=== PATIENT | female | born 1940 | race Native Hawaiian/Other Pacific Islander ===

== ENCOUNTER 2017-08-01 00:01 | Inpatient (IN) | payer OTHER ==
[2017-08-01 00:01] VITALS: BMI 31.4
--- NOTE | 2017-08-01 00:21 | C.PDOC ---
History Of Present Illness 76yo female, presents to the ED complaining of chest pain which began a little earlier when the patient was watching the TV. She reports the pain as pressure like and states it is non-radiating; pt additionally states the pain is 4/10. Of note, patient recently had a stress test done on 07/[address] López. Patient offers no additional medical complaints. Time Seen by Provider: 08/01/17 00:21 Chief Complaint (Nursing): Chest Pain History Per: Patient History/Exam Limitations: no limitations Onset/Duration Of Symptoms: Mins Current Symptoms Are (Timing): Still Present Pain Scale Rating Of: 4 Quality: Pressure Modifying Factors: None Exacerbating Factors: None Alleviating Factors: None Recent travel outside of the [place]: No Additional History Per: Patient Past Medical History Reviewed: Historical Data, Nursing Documentation, Vital Signs Vital Signs: Last Vital Signs Temp 97.9 F 08/01/17 00:12 Pulse 71 08/01/17 00:21 Resp 18 08/01/17 00:12 BP 139/84 08/01/17 00:21 Pulse Ox 96 08/01/17 01:39 - Medical History PMH: Anxiety, Asthma (Allergies), Depression, HTN, Peripheral Edema Denies: Chronic Kidney Disease Surgical History: No Surg Hx - [facility] Procedures DILATION OF 1 COR ART WITH INTRALUM DEV, PERC APPROACH (10/02/16) FLUOROSCOPY OF LEFT HEART USING LOW OSMOLAR CONTRAST (10/02/16) FLUOROSCOPY OF MULT COR ART USING L OSM CONTRAST (10/02/16) MEASURE OF CARDIAC SAMPL & PRESSURE, L HEART, PERC APPROACH (10/02/16) Family History: States: Unknown Family Hx - Social History Hx Alcohol Use: No Hx Substance Use: No Review Of Systems Constitutional: Negative for: Fever, Chills Cardiovascular: Positive for: Chest Pain Respiratory: Negative for: Shortness of Breath Gastrointestinal: Negative for: Abdominal Pain Genitourinary: Negative for: Hematuria Musculoskeletal: Negative for: Neck Pain Skin: Negative for: Rash Neurological: Negative for: Weakness Psych: Negative for: Anxiety Physical Exam - Physical Exam Appears: Non-toxic, No Acute Distress Skin: Warm, Dry Head: Normacephalic Eye(s): bilateral: Normal Inspection Oral Mucosa: Moist Neck: Supple Chest: Symmetrical Cardiovascular: Rhythm Regular Respiratory: No Rales, No Rhonchi, No Wheezing Gastrointestinal/Abdominal: Bowel Sounds, Soft, No Tenderness Back: No CVA Tenderness Extremity: No Deformity, No Swelling Extremity: Bilateral: Atraumatic Pulses: Left Dorsalis Pedis: Normal, Right Dorsalis Pedis: Normal Neurological/Psych: Oriented x3, Normal Speech (patient speaks in complete sentences), Normal Cognition Gait: Steady ED Course And Treatment - Laboratory Results Result Diagrams: 08/01/17 00:45 08/01/17 00:45 ECG: Interpreted By Me, Viewed By Me ECG Rhythm: Sinus Rhythm (67), Nonspecific Changes O2 Sat by Pulse Oximetry: 96 (RA) Pulse Ox Interpretation: Normal - Radiology CXR: Interpreted by Me, Viewed By Me Progress Note: Aspirin, labs and chest x-ray ordered Disposition Discussed With Dr.: James Olivier Comment: accepted the pt on his service and took over the care at 2AM Doctor Will See Patient In The: ED Counseled Patient/Family Regarding: Studies Performed, Diagnosis - Disposition Disposition: HOSPITALIZED Disposition Time: 00:21 Condition: FAIR Forms: [facility] (Macedonian) - Clinical Impression Clinical Impression: Chest pain - Scribe Statement The provider has reviewed the documentation as recorded by the Tang Duenas Provider Attestation: All medical record entries made by the Tang were at my direction and personally dictated by me. I have reviewed the chart and agree that the record accurately reflects my personal performance of the history, physical exam, medical decision making, and the department course for this patient. I have also personally directed, reviewed, and agree with the discharge instructions and disposition. Decision To Admit - Pt Status Changed To: Hospital Disposition Of: Observation - . Bed Request Type: Telemetry Admitting Physician: James Olivier Patient Diagnosis: Chest pain
[2017-08-01] MEDS ORDERED: Aspirin 325 mg EC Tablets PO STA (00:22)
[2017-08-01 00:49] LABS: BASO # 0.1 K/uL (0.0-0.2); BASO % 1.3 % (0.0-2.0); EOS # 0.2 K/uL (0.0-0.7); EOS % 3.1 % (0.0-4.0); HEMATOCRIT 39.8 % (34.0-47.0); LYMPH # 3.1 K/uL (1.0-4.3); LYMPH % 40.6 % (20.0-40.0); MEAN CELL VOLUME 91.6 fL (81.0-99.0); MEAN CORPUSCULAR HEMOGLOBIN 31.2 pg (27.0-31.0); MEAN CORPUSCULAR HGB CONC 34.1 g/dL (33.0-37.0); MEAN PLATELET VOLUME 9.3 fL (7.2-11.7); MONO # 0.5 K/uL (0.0-0.8); MONO % 6.6 % (0.0-10.0); NRBC % 0.1 % (0.0-2.0); RED CELL DISTRIBUTION WIDTH 13.2 % (11.5-14.5); WHITE BLOOD COUNT 7.7 K/uL (4.8-10.8)
[2017-08-01 00:57] LABS: INR 0.9
[2017-08-01] MEDS ORDERED: Aspirin 325 mg EC Tablets PO ONE (00:57)
[2017-08-01 01:01] LABS: CHLORIDE 103 mmol/L (98-107); SODIUM 140 mmol/L (132-148)
[2017-08-01 01:03] LABS: BILIRUBIN,TOTAL 0.5 mg/dL (0.2-1.3); GFR AFRICAN-AMERICAN > 60
[2017-08-01 01:04] LABS: ALB/GLOB RATIO 1.4 (1.0-2.1); ALKALINE PHOSPHATASE 86 U/L (38-126); ALT/SGPT 36 U/L (9-52); AST/SGOT 36 U/L (14-36); BLOOD UREA NITROGEN 22 mg/dL (7-17); CARBON DIOXIDE 26 mmol/L (22-30); GLUCOSE,RANDOM 205 mg/dL (65-105); TOTAL PROTEIN 7.1 g/dL (6.3-8.3)
[2017-08-01 01:05] LABS: CALCIUM 8.9 mg/dl (8.6-10.4)
--- NOTE | 2017-08-01 02:50 | CP.PCM.HP ---
<AndrewGrisel ModiJulio Cesar - Last Filed: 08/01/17 04:53> History of Present Illness - History of Present Illness History of Present Illness: CC: Chest Pain HPI: 75yo F with past medical history including Anxiety/Depression and borderline diabetes who comes to the emergency room with chest pain for the past day. Patient states the chest pain began earlier today after dinner around 5pm and she thought it was from her dinner however later on in the evening the pain persisted. Patient states the pain feels like a pressure and it is located in the middle of the chest. Patient also states the pain radiates the back. She states she has had 2 cath procedures and a recent stress test with Dr. López but she has not received the results. Patient denies fever, shortness of breath, palpitations, chills, diarrhea, constipations, nausea or vomiting. PMD: Dr. Whyte Classification Counselor: Dr. López Past Medical History: Anxiety/Depression. Diet controlled "borderline" DM Past Surgical History: Cath procedure on 2015 (stent placed in left circumflex) and another in 2017 Social History: Lives at home with daughter, No smoking, no alcohol or illicit drug use Medications: patient states she will bring in home medications tomorrow Allergies: NKDA Present on Admission - Present on Admission Any Indicators Present on Admission: No Review of Systems - Review of Systems Systems not reviewed;Unavailable: Language Barrier - Constitutional Constitutional: absent: Chills, Headache - EENT Eyes: absent: Blurred Vision Nose/Mouth/Throat: absent: Nasal Congestion, Nasal Discharge, Hoarsness, Sore Throat - Cardiovascular Cardiovascular: Chest Pain, Chest Pain at Rest, Dyspnea. absent: Palpitations, Pedal Edema - Respiratory Respiratory: Dyspnea on Exertion. absent: Cough, Dyspnea - Gastrointestinal Gastrointestinal: absent: Constipation, Diarrhea, Nausea, Vomiting - Genitourinary Genitourinary: absent: Dysuria - Musculoskeletal Musculoskeletal: absent: Numbness, Tingling - Neurological Neurological: absent: Dizziness, Numbness, Tingling, Weakness - Endocrine Endocrine: absent: Fatigue, Palpitations Past Patient History - Infectious Disease Hx of Infectious Diseases: None - Past Medical History & Family History Past Medical History?: Yes - Past Social History Smoking Status: Never Smoked - CARDIAC Hx Hypertension: Yes Hx Peripheral Edema: Yes - PULMONARY Hx Asthma: Yes (Allergies) - NEUROLOGICAL Hx Neurological Disorder: No - HEENT Hx Epistaxis: Yes - RENAL Hx Chronic Kidney Disease: No - ENDOCRINE/METABOLIC Hx Endocrine Disorders: Yes Hx Diabetes Mellitus Type 2: Yes (borderline, denies medications) - HEMATOLOGICAL/ONCOLOGICAL Hx Blood Disorders: No - INTEGUMENTARY Hx Dermatological Problems: No - MUSCULOSKELETAL/RHEUMATOLOGICAL Hx Musculoskeletal Disorders: Yes Hx Unsteady Gait: Yes - GASTROINTESTINAL Hx Gastrointestinal Disorders: No - GENITOURINARY/GYNECOLOGICAL Hx Genitourinary Disorders: No - PSYCHIATRIC Hx Anxiety: Yes Hx Depression: Yes Hx Substance Use: No - SURGICAL HISTORY Hx Angioplasty: Yes Hx Cardiac Catheterization: Yes - ANESTHESIA Hx Anesthesia: Yes Hx Malignant Hyperthermia: No Meds Allergies/Adverse Reactions: Allergies Allergy/AdvReac Type Severity Reaction Status Date / Time No Known Allergies Allergy Verified 10/01/16 19:33 Physical Exam - Constitutional Appears: No Acute Distress - Head Exam Head Exam: ATRAUMATIC, NORMAL INSPECTION, NORMOCEPHALIC - Eye Exam Eye Exam: EOMI, Normal appearance, PERRL Pupil Exam: NORMAL ACCOMODATION - ENT Exam ENT Exam: Mucous Membranes Moist - Neck Exam Neck exam: Positive for: Normal Inspection - Respiratory Exam Respiratory Exam: Clear to Auscultation Bilateral, NORMAL BREATHING PATTERN - Cardiovascular Exam Cardiovascular Exam: REGULAR RHYTHM, RRR, +S1, +S2 - GI/Abdominal Exam GI & Abdominal Exam: Normal Bowel Sounds, Soft. absent: Tenderness - Extremities Exam Extremities exam: Positive for: normal inspection. Negative for: calf tenderness, pedal edema, tenderness - Back Exam Back exam: NORMAL INSPECTION - Neurological Exam Neurological exam: Alert, CN II-XII Intact, Oriented x3 - Psychiatric Exam Psychiatric exam: Normal Affect, Normal Mood - Skin Skin Exam: Normal Color, Warm Results - Vital Signs Recent Vital Signs: Last Vital Signs Temp 97.9 F 08/01/17 00:12 Pulse 71 08/01/17 00:21 Resp 18 08/01/17 00:12 BP 139/84 08/01/17 00:21 Pulse Ox 96 08/01/17 02:22 - Labs Result Diagrams: 08/01/17 00:45 08/01/17 00:45 Labs: Laboratory Results - last 24 hr 08/01/17 08/01/17 08/01/17 00:45 00:45 00:45 WBC 7.7 RBC 4.35 Hgb 13.6 Hct 39.8 MCV 91.6 MCH 31.2 H MCHC 34.1 RDW 13.2 Plt Count 258 MPV 9.3 Neut % (Auto) 48.4 L Lymph % (Auto) 40.6 H [place] % (Auto) 6.6 Eos % (Auto) 3.1 Baso % (Auto) 1.3 Neut # 3.7 Lymph # 3.1 [place] # 0.5 Eos # 0.2 Baso # 0.1 PT 10.0 INR 0.9 APTT 30 Sodium 140 Potassium 4.0 Chloride 103 Carbon Dioxide 26 Anion Gap 16 BUN 22 H Creatinine 0.9 Est GFR ( Amer) > 60 Est GFR (Non-Af Amer) > 60 Random Glucose 205 H Calcium 8.9 Total Bilirubin 0.5 AST 36 ALT 36 Alkaline Phosphatase 86 Troponin I < 0.0120 NT-Pro-B Natriuret Pep 323 Total Protein 7.1 Albumin 4.1 Globulin 3.0 Albumin/Globulin Ratio 1.4 Assessment & Plan - Assessment and Plan (Free Text) Assessment: 1.) Chest Pain - Troponin <0.0120 - f/u Troponin x2 - EKG: sinus rhythm - 325mg Aspirin given in the ED - restart home medications after confirmation - f/u Nuclear Stress Test (07/23/17) - ECHO (10/02/16): EF 50% - f/u chest xray 2.) History of Depression/Anxiety Restart home medications after patient brings them in to confirm 3. PPx Pepcid Heparin SC Case Discussed with Dr. 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 Nuclear stress test on 07/20/2017 report not available at time of evaluation. Patient denies exertioanl symptoms. Last night cp as pressure on left side for few min at 5pm post supper and at night 11 with spontaneous improvement, w/u including ekg, troponin negative. Plan Repeat cardiac enzymes f/u stress report with Dr. López See orders for detail.
--- NOTE | 2017-08-01 08:46 | RAD ---
PROCEDURE: CHEST RADIOGRAPH, 1 VIEW HISTORY: chest pain COMPARISON: None available. FINDINGS: LUNGS: The left retrocardiac portion of the lower lobe is not clearly seen. Otherwise no evidence of focal infiltrate or consolidation P PLEURA: No pneumothorax or pleural fluid seen. CARDIOVASCULAR: Normal. OSSEOUS STRUCTURES: No significant abnormalities. VISUALIZED UPPER ABDOMEN: Normal. OTHER FINDINGS: None. IMPRESSION: Suboptimal study due portable technique and patient's body habitus. The retrocardiac portion of the left lower lobe is not clearly seen. Otherwise no evidence of acute pulmonary disease.
[2017-08-01] MEDS: Multiple Vitamins Tab PO SCH (14:17)
[2017-08-01 16:34] LABS: RBC URINE 3 /hpf (0-3); URINE BACTERIA RARE (<OCC); URINE BILIRUBIN NEGATIVE (NEGATIVE); URINE BLOOD NEGATIVE (NEGATIVE); URINE COLOR Yellow (YELLOW); URINE GLUCOSE (UA) 3+ mg/dL (Normal); URINE KETONE NEGATIVE (NEGATIVE); URINE LEUKOCYTE ESTERASE 1+ Leu/uL (Negative); URINE PROTEIN NEGATIVE (NEGATIVE); URINE UROBILINOGEN NORMAL mg/dL (0.2-1.0); WBC URINE 36 /hpf (0-5)
--- NOTE | 2017-08-01 18:16 | CP.PCM.PN ---
<NicolaJeni L. - Last Filed: 08/01/17 17:54> Subjective - Date & Time of Evaluation Date of Evaluation: 08/01/17 Time of Evaluation: 07:00 - Subjective Subjective: PGY1- Medicine Note- Dr. Lopez's Service Patient seen and examined at bedside and says she is feeling much better. Patient no longer has any chest pain. Patient denies shortness of breath, palpitations, abdominal pain, nausea, vomiting, constipation, diarrhea. Objective - Vital Signs/Intake and Output Vital Signs (last 24 hours): Temp Pulse Resp BP Pulse Ox 98.2 F 64 16 128/50 L 99 08/01/17 16:05 08/01/17 16:05 08/01/17 16:05 08/01/17 16:05 08/01/17 16:05 - Medications Medications: Current Medications Aspirin (Aspirin Chewable) 81 mg PO DAILY [facility] Last Admin: 08/01/17 14:16 Dose: 81 mg Clonazepam (Klonopin) 0.5 mg PO TID [facility] Last Admin: 08/01/17 14:17 Dose: 0.5 mg Clopidogrel Bisulfate (Plavix) 75 mg PO DAILY [facility] Last Admin: 08/01/17 14:17 Dose: 75 mg Famotidine (Pepcid) 20 mg PO DAILY [facility] Last Admin: 08/01/17 09:12 Dose: 20 mg Fluoxetine HCl (Prozac) 40 mg PO DAILY [facility] Last Admin: 08/01/17 14:17 Dose: 40 mg Heparin Sodium (Porcine) (Heparin) 5,000 units SC Q8 [facility] Last Admin: 08/01/17 14:16 Dose: 5,000 units Metoprolol Tartrate (Lopressor) 25 mg PO DAILY [facility] Last Admin: 08/01/17 14:16 Dose: 25 mg Multivitamins (Hexavitamin) 1 tab PO DAILY [facility] Last Admin: 08/01/17 14:17 Dose: 1 tab Rosuvastatin Calcium (Crestor) 10 mg PO HS [facility] - Labs Labs: PT 10.0 SECONDS (9.7-12.2) 08/01/17 00:45 INR 0.9 08/01/17 00:45 APTT 30 SECONDS (21-34) 08/01/17 00:45 - Constitutional Appears: Non-toxic, No Acute Distress - Head Exam Head Exam: ATRAUMATIC, NORMAL INSPECTION, NORMOCEPHALIC - Eye Exam Eye Exam: EOMI, Normal appearance - ENT Exam ENT Exam: Mucous Membranes Moist - Neck Exam Neck Exam: Full ROM. absent: Tenderness - Respiratory Exam Respiratory Exam: Clear to Ausculation Bilateral, NORMAL BREATHING PATTERN. absent: Rales, Rhonchi, Wheezes, Respiratory Distress, Stridor - Cardiovascular Exam Cardiovascular Exam: REGULAR RHYTHM, RRR. absent: Gallop, Rubs - GI/Abdominal Exam GI & Abdominal Exam: Soft, Normal Bowel Sounds - Extremities Exam Extremities Exam: Full ROM, Normal Inspection. absent: Pedal Edema - Neurological Exam Neurological Exam: Alert, Awake, Oriented x3 - Psychiatric Exam Psychiatric exam: Normal Affect, Normal Mood - Skin Skin Exam: Intact, Normal Color, Warm Assessment and Plan - Assessment and Plan (Free Text) Assessment: 1.) Chest Pain - troponins x3 (-) - EKG: sinus rhythm - 325mg Aspirin given in the ED - restart home medications after confirmation - f/u Nuclear Stress Test (07/23/17) - ECHO (10/02/16): EF 50% - chest xray: suboptimal study due to portable technique and patient's body habitus. retrocardiac portion of left lower lobe is not clearly seen. otherwise no evidence of acute pulmonary disease consult cardiology, Dr. López, help appreciated 2.) History of Depression/Anxiety continue home medications: Klonopin .5 mg po tid Prozac 40 mg po daily 3.) HTN continue home medication: Metoprolol Tartrate 25 mg po daily 4.) hx cardiac stent continue home medications: Aspirin 81 mg po daily Plavix 75mg PO daily 3. PPx Pepcid Heparin SC <Tony Lopez H - Last Filed: 08/01/17 18:47> Objective - Vital Signs/Intake and Output Vital Signs (last 24 hours): Temp Pulse Resp BP Pulse Ox 98.2 F 64 16 128/50 L 99 08/01/17 16:05 08/01/17 16:05 08/01/17 16:05 08/01/17 16:05 08/01/17 16:05 - Medications Medications: Current Medications Aspirin (Aspirin Chewable) 81 mg PO DAILY [facility] Last Admin: 08/01/17 14:16 Dose: 81 mg Clonazepam (Klonopin) 0.5 mg PO TID [facility] Last Admin: 08/01/17 14:17 Dose: 0.5 mg Clopidogrel Bisulfate (Plavix) 75 mg PO DAILY [facility] Last Admin: 08/01/17 14:17 Dose: 75 mg Famotidine (Pepcid) 20 mg PO DAILY [facility] Last Admin: 08/01/17 09:12 Dose: 20 mg Fluoxetine HCl (Prozac) 40 mg PO DAILY [facility] Last Admin: 08/01/17 14:17 Dose: 40 mg Heparin Sodium (Porcine) (Heparin) 5,000 units SC Q8 [facility] Last Admin: 08/01/17 14:16 Dose: 5,000 units Metoprolol Tartrate (Lopressor) 25 mg PO DAILY [facility] Last Admin: 08/01/17 14:16 Dose: 25 mg Multivitamins (Hexavitamin) 1 tab PO DAILY [facility] Last Admin: 08/01/17 14:17 Dose: 1 tab Rosuvastatin Calcium (Crestor) 10 mg PO HS [facility] - Labs Labs: PT 10.0 SECONDS (9.7-12.2) 08/01/17 00:45 INR 0.9 08/01/17 00:45 APTT 30 SECONDS (21-34) 08/01/17 00:45 Attending/Attestation - Attestation I have personally seen and examined this patient.: Yes I have fully participated in the care of the patient.: Yes I have reviewed all pertinent clinical information, including history, physical exam and plan: Yes Notes (Text): 08/01/17 18:45 Medical Attending: Patient was seen and examined by me. Agree with the above note by the resident When we saw the patient she was still in the ER. Two of her cardiac enzymes were negative at that time. When we saw her she did not report chest pain From what I understand she has had a recent cardiac cath as well as stress test with her underwear cutter and is on Plavix and ASA thank you Tony Lopez 08/01/17 18:47
[2017-08-02 02:48] VITALS: RESP 20
[2017-08-02 08:01] LABS: BASO # 0.1 K/uL (0.0-0.2); BASO % 0.9 % (0.0-2.0); EOS # 0.3 K/uL (0.0-0.7); EOS % 3.2 % (0.0-4.0); HEMATOCRIT 43.7 % (34.0-47.0); LYMPH % 42.8 % (20.0-40.0); MEAN CELL VOLUME 93.4 fL (81.0-99.0); MEAN CORPUSCULAR HEMOGLOBIN 30.9 pg (27.0-31.0); MEAN CORPUSCULAR HGB CONC 33.1 g/dL (33.0-37.0); MEAN PLATELET VOLUME 9.2 fL (7.2-11.7); MONO # 0.7 K/uL (0.0-0.8); MONO % 7.7 % (0.0-10.0); NRBC % 0.1 % (0.0-2.0); RED CELL DISTRIBUTION WIDTH 13.1 % (11.5-14.5); WHITE BLOOD COUNT 9.3 K/uL (4.8-10.8)
[2017-08-02 08:21] LABS: CHLORIDE 102 mmol/L (98-107)
[2017-08-02 08:22] LABS: POTASSIUM 4.3 mmol/L (3.6-5.2); SODIUM 140 mmol/L (132-148)
[2017-08-02 08:24] LABS: CARBON DIOXIDE 26 mmol/L (22-30); GFR AFRICAN-AMERICAN > 60
[2017-08-02 08:25] LABS: ALB/GLOB RATIO 1.3 (1.0-2.1); ALKALINE PHOSPHATASE 86 U/L (38-126); ALT/SGPT 35 U/L (9-52); AST/SGOT 35 U/L (14-36); BILIRUBIN,TOTAL 0.8 mg/dL (0.2-1.3); BLOOD UREA NITROGEN 22 mg/dL (7-17); CALCIUM 8.8 mg/dl (8.6-10.4); GLUCOSE,RANDOM 147 mg/dL (65-105); PHOSPHOROUS 3.5 mg/dL (2.5-4.5); TOTAL PROTEIN 7.4 g/dL (6.3-8.3)
[2017-08-02 08:26] LABS: MAGNESIUM 1.8 mg/dL (1.6-2.3)
[2017-08-02 09:45] VITALS: PULSE 61
[2017-08-02] MEDS: Multiple Vitamins Tab PO SCH (10:02)
--- NOTE | 2017-08-02 13:41 | CP.PCM.CON ---
History of Present Illness - History of Present Illness History of Present Illness: patient seen/examined. mild apical perfusion abnormality on stress test. no evidence of myocardial infarction by cardiac enzymes. Recommend nitrates and addition of Ranexa for symptom control. Past Patient History - Infectious Disease Hx of Infectious Diseases: None - Past Medical History & Family History Past Medical History?: Yes - Past Social History Smoking Status: Never Smoked - CARDIAC Hx Cardiac Disorders: Yes Hx Hypertension: Yes Hx Peripheral Edema: Yes - PULMONARY Hx Respiratory Disorders: Yes Hx Asthma: Yes (Allergies) - NEUROLOGICAL Hx Neurological Disorder: No - HEENT Hx HEENT Problems: Yes Hx Epistaxis: Yes - RENAL Hx Chronic Kidney Disease: No - ENDOCRINE/METABOLIC Hx Endocrine Disorders: Yes Hx Diabetes Mellitus Type 2: Yes (borderline, denies medications) - HEMATOLOGICAL/ONCOLOGICAL Hx Blood Disorders: No - INTEGUMENTARY Hx Dermatological Problems: No - MUSCULOSKELETAL/RHEUMATOLOGICAL Hx Musculoskeletal Disorders: Yes Hx Falls: No Hx Unsteady Gait: Yes - GASTROINTESTINAL Hx Gastrointestinal Disorders: No - GENITOURINARY/GYNECOLOGICAL Hx Genitourinary Disorders: No - PSYCHIATRIC Hx Psychophysiologic Disorder: Yes Hx Anxiety: Yes Hx Depression: Yes Hx Substance Use: No - SURGICAL HISTORY Hx Surgeries: Yes Hx Angioplasty: Yes Hx Cardiac Catheterization: Yes Hx Hysterectomy: Yes - ANESTHESIA Hx Anesthesia: Yes Hx Malignant Hyperthermia: No Meds Allergies/Adverse Reactions: Allergies Allergy/AdvReac Type Severity Reaction Status Date / Time No Known Allergies Allergy Verified 10/01/16 19:33 - Medications Medications: Current Medications Aspirin (Aspirin Chewable) 81 mg PO DAILY [facility] Last Admin: 08/02/17 10:02 Dose: 81 mg Clonazepam (Klonopin) 0.5 mg PO TID [facility] Last Admin: 08/02/17 10:02 Dose: 0.5 mg Clopidogrel Bisulfate (Plavix) 75 mg PO DAILY [facility] Last Admin: 08/02/17 10:02 Dose: 75 mg Famotidine (Pepcid) 20 mg PO DAILY [facility] Last Admin: 08/02/17 10:02 Dose: 20 mg Fluoxetine HCl (Prozac) 40 mg PO DAILY [facility] Last Admin: 08/02/17 10:02 Dose: 40 mg Heparin Sodium (Porcine) (Heparin) 5,000 units SC Q8 [facility] Last Admin: 08/02/17 05:17 Dose: 5,000 units Lisinopril (Zestril) 10 mg PO DAILY [facility] Metoprolol Tartrate (Lopressor) 25 mg PO DAILY [facility] Last Admin: 08/02/17 10:02 Dose: 25 mg Multivitamins (Hexavitamin) 1 tab PO DAILY [facility] Last Admin: 08/02/17 10:02 Dose: 1 tab Nitrofurantoin Macrocrystals (Macrobid) 100 mg PO Q12H [facility] Rosuvastatin Calcium (Crestor) 10 mg PO HS [facility] Last Admin: 08/01/17 22:02 Dose: 10 mg Results - Vital Signs Recent Vital Signs: Last Vital Signs Temp 97.5 F L 08/02/17 07:00 Pulse 61 08/02/17 07:55 Resp 20 08/02/17 07:00 BP 150/80 08/02/17 10:02 Pulse Ox 98 08/02/17 07:00 - Labs Result Diagrams: 08/02/17 07:45 08/02/17 07:45 Labs: Laboratory Results - last 24 hr 08/01/17 08/01/17 08/02/17 15:55 16:04 06:24 WBC RBC Hgb Hct MCV MCH MCHC RDW Plt Count MPV Neut % (Auto) Lymph % (Auto) [place] % (Auto) Eos % (Auto) Baso % (Auto) Neut # Lymph # [place] # Eos # Baso # Sodium Potassium Chloride Carbon Dioxide Anion Gap BUN Creatinine Est GFR ( Amer) Est GFR (Non-Af Amer) POC Glucose (mg/dL) 135 H Random Glucose Calcium Phosphorus Magnesium Total Bilirubin AST ALT Alkaline Phosphatase Total Creatine Kinase 129 CK-MB (Mass) 1.81 Troponin I, Quant < 0.0120 Total Protein Albumin Globulin Albumin/Globulin Ratio Urine Color Yellow Urine Clarity Hazy Urine pH 5.0 Ur Specific [place] 1.026 Urine Protein Negative Urine Glucose (UA) 3+ H Urine Ketones Negative Urine Blood Negative Urine Nitrate Negative Urine Bilirubin Negative Urine Urobilinogen Normal Ur Leukocyte Esterase 1+ H Urine WBC (Auto) 36 H Urine RBC (Auto) 3 Ur Squamous Epith Cells 18 H Urine Bacteria Rare 08/02/17 08/02/17 08/02/17 07:45 07:45 11:51 WBC 9.3 RBC 4.68 Hgb 14.4 Hct 43.7 MCV 93.4 MCH 30.9 MCHC 33.1 RDW 13.1 Plt Count 290 MPV 9.2 Neut % (Auto) 45.4 L Lymph % (Auto) 42.8 H [place] % (Auto) 7.7 Eos % (Auto) 3.2 Baso % (Auto) 0.9 Neut # 4.2 Lymph # 4.0 [place] # 0.7 Eos # 0.3 Baso # 0.1 Sodium 140 Potassium 4.3 Chloride 102 Carbon Dioxide 26 Anion Gap 16 BUN 22 H Creatinine 0.8 Est GFR ( Amer) > 60 Est GFR (Non-Af Amer) > 60 POC Glucose (mg/dL) 205 H Random Glucose 147 H Calcium 8.8 Phosphorus 3.5 Magnesium 1.8 Total Bilirubin 0.8 AST 35 ALT 35 Alkaline Phosphatase 86 Total Creatine Kinase CK-MB (Mass) Troponin I, Quant Total Protein 7.4 Albumin 4.2 Globulin 3.2 Albumin/Globulin Ratio 1.3 Urine Color Urine Clarity Urine pH Ur Specific [place] Urine Protein Urine Glucose (UA) Urine Ketones Urine Blood Urine Nitrate Urine Bilirubin Urine Urobilinogen Ur Leukocyte Esterase Urine WBC (Auto) Urine RBC (Auto) Ur Squamous Epith Cells Urine Bacteria
[2017-08-02 16:38] VITALS: BP 101/56; TEMP 97.7; O2SAT 95
[2017-08-02] MEDS ORDERED: Ranolazine 500 mg Extended Release Tablets PO SCH (18:00)
--- NOTE | 2017-08-02 20:25 | CP.PCM.DIS ---
Provider - Provider Date of Admission: 08/01/17 01:48 Attending physician: James Olivier MD Primary care physician: Dr. Whyte Consults: Dr. López Time Spent in preparation of Discharge (in minutes): 45 Diagnosis - Discharge Diagnosis (1) Anxiety disorder Status: Chronic (2) Chest pain Status: Resolved Hospital Course - Lab Results Lab Results: Most Recent Lab Values WBC 9.3 K/uL (4.8-10.8) 08/02/17 07:45 RBC 4.68 Mil/uL (3.80-5.20) 08/02/17 07:45 Hgb 14.4 g/dL (11.0-16.0) 08/02/17 07:45 Hct 43.7 % (34.0-47.0) 08/02/17 07:45 MCV 93.4 fL (81.0-99.0) 08/02/17 07:45 MCH 30.9 pg (27.0-31.0) 08/02/17 07:45 MCHC 33.1 g/dL (33.0-37.0) 08/02/17 07:45 RDW 13.1 % (11.5-14.5) 08/02/17 07:45 Plt Count 290 K/uL (130-400) 08/02/17 07:45 MPV 9.2 fL (7.2-11.7) 08/02/17 07:45 Neut % (Auto) 45.4 % (50.0-75.0) L 08/02/17 07:45 Lymph % (Auto) 42.8 % (20.0-40.0) H 08/02/17 07:45 [place] % (Auto) 7.7 % (0.0-10.0) 08/02/17 07:45 Eos % (Auto) 3.2 % (0.0-4.0) 08/02/17 07:45 Baso % (Auto) 0.9 % (0.0-2.0) 08/02/17 07:45 Neut # 4.2 K/uL (1.8-7.0) 08/02/17 07:45 Lymph # 4.0 K/uL (1.0-4.3) 08/02/17 07:45 [place] # 0.7 K/uL (0.0-0.8) 08/02/17 07:45 Eos # 0.3 K/uL (0.0-0.7) 08/02/17 07:45 Baso # 0.1 K/uL (0.0-0.2) 08/02/17 07:45 PT 10.0 SECONDS (9.7-12.2) 08/01/17 00:45 INR 0.9 08/01/17 00:45 APTT 30 SECONDS (21-34) 08/01/17 00:45 Sodium 140 mmol/L (132-148) 08/02/17 07:45 Potassium 4.3 mmol/L (3.6-5.2) 08/02/17 07:45 Chloride 102 mmol/L (98-107) 08/02/17 07:45 Carbon Dioxide 26 mmol/L (22-30) 08/02/17 07:45 Anion Gap 16 (10-20) 08/02/17 07:45 BUN 22 mg/dL (7-17) H 08/02/17 07:45 Creatinine 0.8 MG/DL (0.7-1.2) 08/02/17 07:45 Est GFR ( Amer) > 60 08/02/17 07:45 Est GFR (Non-Af Amer) > 60 08/02/17 07:45 POC Glucose (mg/dL) 205 mg/dL (65-110) H 08/02/17 11:51 Random Glucose 147 mg/dL (65-105) H 08/02/17 07:45 Calcium 8.8 mg/dl (8.6-10.4) 08/02/17 07:45 Phosphorus 3.5 mg/dL (2.5-4.5) 08/02/17 07:45 Magnesium 1.8 mg/dL (1.6-2.3) 08/02/17 07:45 Total Bilirubin 0.8 mg/dL (0.2-1.3) 08/02/17 07:45 AST 35 U/L (14-36) 08/02/17 07:45 ALT 35 U/L (9-52) 08/02/17 07:45 Alkaline Phosphatase 86 U/L (38-126) 08/02/17 07:45 Total Creatine Kinase 129 U/L (30-135) 08/01/17 16:04 CK-MB (Mass) 1.81 ng/mL (0.0-3.38) 08/01/17 16:04 Troponin I < 0.0120 ng/mL (0.00-0.120) 08/01/17 00:45 Troponin I, Quant < 0.0120 ng/mL (0.00-0.120) 08/01/17 16:04 NT-Pro-B Natriuret Pep 323 pg/mL (0-900) 08/01/17 00:45 Total Protein 7.4 g/dL (6.3-8.3) 08/02/17 07:45 Albumin 4.2 g/dL (3.5-5.0) 08/02/17 07:45 Globulin 3.2 gm/dL (2.2-3.9) 08/02/17 07:45 Albumin/Globulin Ratio 1.3 (1.0-2.1) 08/02/17 07:45 Urine Color Yellow (YELLOW) 08/01/17 15:55 Urine Clarity Hazy (Clear) 08/01/17 15:55 Urine pH 5.0 (5.0-8.0) 08/01/17 15:55 Ur Specific [place] 1.026 (1.003-1.030) 08/01/17 15:55 Urine Protein Negative mg/dL (NEGATIVE) 08/01/17 15:55 Urine Glucose (UA) 3+ mg/dL (Normal) H 08/01/17 15:55 Urine Ketones Negative mg/dL (NEGATIVE) 08/01/17 15:55 Urine Blood Negative (NEGATIVE) 08/01/17 15:55 Urine Nitrate Negative (NEGATIVE) 08/01/17 15:55 Urine Bilirubin Negative (NEGATIVE) 08/01/17 15:55 Urine Urobilinogen Normal mg/dL (0.2-1.0) 08/01/17 15:55 Ur Leukocyte Esterase 1+ Karen/uL (Negative) H 08/01/17 15:55 Urine WBC (Auto) 36 /hpf (0-5) H 08/01/17 15:55 Urine RBC (Auto) 3 /hpf (0-3) 08/01/17 15:55 Ur Squamous Epith Cells 18 /hpf (0-5) H 08/01/17 15:55 Urine Bacteria Rare (<OCC) 08/01/17 15:55 - Hospital Course Hospital Course: "CC: Chest Pain HPI: 75yo F with past medical history including Anxiety/Depression and borderline diabetes who comes to the emergency room with chest pain for the past day. Patient states the chest pain began earlier today after dinner around 5pm and she thought it was from her dinner however later on in the evening the pain persisted. Patient states the pain feels like a pressure and it is located in the middle of the chest. Patient also states the pain radiates the back. She states she has had 2 cath procedures and a recent stress test with Dr. López but she has not received the results. Patient denies fever, shortness of breath, palpitations, chills, diarrhea, constipations, nausea or vomiting. " Hospital Course: Chest Pain: troponins x3 were negative and EKG showed sinus rhythm. 325mg Aspirin given in the ED. ECHO (10/02/16): EF 50%. Chest xray showed suboptimal study due to portable technique and patient's body habitus. retrocardiac portion of left lower lobe is not clearly seen. otherwise no evidence of acute pulmonary disease Dr. López (cardiology) found a mild apical perfusion abnormality on stress test. He recommended patient continue home medications and add on Imdur 90 mg and Ranexa 500 mg po BID. History of Depression/Anxiety: Patient's home medications continued: Klonopin .5 mg po tid and Prozac 40 mg po daily. HTN: Continue home medication: Metoprolol Tartrate 25 mg po daily. Patient also treated with Lisinopril 10 mg daily. hx cardiac stent: Continue home medications: Aspirin 81 mg po daily and Plavix 75mg PO daily Possible UTI: UA showed protein 3, leuk esterase 1, wbc 36 and squamous cells. Repeat UA ordered. Patient has history of UTI so was treated with Macrobid and sent home on it. Patient to follow up with PMD for UA results. Prophylaxis: Patient treated with pepcid and heparin sc. Upon discharge patient was no longer having any chest pain. Patient stable for discharge as per Dr. Fallon and Dr. López. This is a summary of the patient's hospital course. Please see chart for details. Discharge Exam - Head Exam Head Exam: ATRAUMATIC, NORMAL INSPECTION, NORMOCEPHALIC - Eye Exam Eye Exam: EOMI, Normal appearance - ENT Exam ENT Exam: Mucous Membranes Moist - Neck Exam Neck exam: Full Rom - Respiratory Exam Respiratory Exam: Clear to PA & Lateral, NORMAL BREATHING PATTERN - Cardiovascular Exam Cardiovascular Exam: REGULAR RHYTHM, RRR - GI/Abdominal Exam GI & Abdominal Exam: Normal Bowel Sounds, Unremarkable - Extremities Exam Extremities exam: full ROM - Neurological Exam Neurological exam: Alert, Oriented x3 - Skin Skin Exam: Intact, Normal Color, Warm Discharge Plan - Discharge Medications Prescriptions: Isosorbide Mononitrate ER [Imdur ER] 90 mg PO DAILY #30 tab Lisinopril [Zestril] 10 mg PO DAILY #30 tab Nitrofurantoin Macrocrystals [Macrobid] 100 mg PO Q12H #14 cap Ranolazine [Ranexa] 500 mg PO BID #60 ter - Follow Up Plan Condition: FAIR Disposition: HOME/ ROUTINE Instructions: Lisinopril (By mouth), Isosorbide Mononitrate (By mouth), Nitrofurantoin Combination (By mouth), Ranolazine (By mouth), Chest Pain (DC), Heart Healthy Diet (DC), Depression (DC), Hypertension (DC), Anxiety (DC) Additional Instructions: Patient stable for discharge as per Dr. Fallon and Dr. López. Patient to continue taking home medications. Patient should additionally take: Imdur 90 mg po daily, Lisinopril 10 mg po daily, Macrobid 100 mg twice per day for 7 days, and Ranexa 500 mg twice per day. Patient should follow up with PMD within one week for results of urinalysis. Patient to follow up with Dr. López as an outpatient. Patient should return to Emergency Room if symptoms return. Patient explained instructions who understands and agrees. Referrals: Damian Newsome MD [Non-Staff] - Michelle López MD [Staff Provider] -
--- NOTE | 2017-08-04 22:50 | CARD ---
APPROVED REPORT EKG Measurement Heart [id number] <Conclusion> Normal sinus rhythm Normal ECG
== END 2017-08-02 18:55 | disposition home or self-care (01) | DRG 143 ==
LOC: C.ER 00:01 → C.9E 01:48 → C.6T 15:57
PROVIDERS: ADMIT Internal Medicine; ATTEND Internal Medicine
DX: R07.9 Chest pain, unspecified (principal); I10 Essential (primary) hypertension; F41.9 Anxiety disorder, unspecified; J45.909 Unspecified asthma, uncomplicated; F32.9 Major depressive disorder, single episode, unspecified; R73.03 Prediabetes; Z95.5 Presence of coronary angioplasty implant and graft; Z79.01 Long term (current) use of anticoagulants